=== PATIENT | female | born 1945 | race Caucasian/White ===

== ENCOUNTER 2018-06-10 20:52 | Inpatient (IN) | payer MEDICARE, OTHER ==
[2018-06-10 22:17] LABS: WHITE BLOOD COUNT 6.6 10^3/ul (4.8-10.8)
[2018-06-10 22:17] LABS: ABNORMAL IP MESSAGE 1; HEMATOCRIT 19.8 % (37.0-47.0); MEAN CORPUSCULAR HEMOGLOBIN 28.8 pg (29.0-33.0); MEAN CORPUSCULAR HGB CONC 31.8 g/dl (32.0-37.0); MEAN CORPUSCULAR VOLUME 90.4 fl (82.0-101.0); MEAN PLATELET VOLUME 12.4 fl (7.4-10.4); PLATELET COUNT 146 10^3/UL (140-415); RED BLOOD COUNT 2.19 10^6/ul (4.20-5.40); RED CELL DISTRIBUTION WIDTH 13.6 % (11.5-14.5)
[2018-06-10] MEDS: SOD CHLORIDE 0.9% 500 ML IV (22:19)
[2018-06-10 22:28] LABS: ADD UMIC YES; HEMOGLOBIN 6.3 g/dl (12.0-16.0); UR ASCORBIC ACID NEGATIVE (NEGATIVE); UR BACTERIA MANY /HPF (NONE SEEN); UR BILIRUBIN (Dip) NEGATIVE (NEGATIVE); UR BLOOD (Dip) NEGATIVE (NEGATIVE); UR CLARITY CLEAR (CLEAR); UR COLOR STRAW (YELLOW); UR GLUCOSE (Dip) 3+ mg/dL (NEGATIVE); UR KETONES (Dip) NEGATIVE (NEGATIVE); UR LEUKOCYTE ESTERASE (Dip) NEGATIVE Leu/ul (NEGATIVE); UR MUCUS FEW /HPF (NONE SEEN); UR NITRITE (Dip) NEGATIVE (NEGATIVE); UR RBC 1 /HPF (0-5); UR SPECIFIC GRAVITY (Dip) 1.016 (1.003-1.030); UR TOTAL PROTEIN (Dip) 1+ mg/dl (NEGATIVE); UR UROBILINOGEN (Dip) NEGATIVE (NEGATIVE); UR WBC 9 /HPF (0-5)
[2018-06-10 22:29] LABS: ADD MAN DIFF? YES; POSITIVE DIFF @See below
[2018-06-10 22:37] LABS: ALANINE AMINOTRANSFERASE 18 IU/L (13-69); ALBUMIN 1.9 g/dl (3.3-4.9); ALBUMIN/GLOBULIN RATIO 0.95; ALKALINE PHOSPHATASE 70 IU/L (42-121); ANION GAP 4 (5-13); ASPARTATE AMINO TRANSFERASE < 8 IU/L (15-46); BLOOD UREA NITROGEN 19 mg/dl (7-20); CARBON DIOXIDE 14 mmol/L (21-31); CHLORIDE 120 mmol/L (97-110); GLUCOSE 350 mg/dl (70-220); SODIUM 138 mmol/L (135-144); TOTAL PROTEIN 3.9 g/dl (6.1-8.1)
[2018-06-10 22:46] LABS: CALCIUM 5.2 mg/dl (8.4-10.2); POTASSIUM 2.5 mmol/L (3.5-5.1)
[2018-06-10 22:47] LABS: TROPONIN-I < 0.012 ng/ml (0.000-0.120)
[2018-06-10] MEDS ORDERED: SODIUM CHLORIDE 23.4% 77 MEQ, POTASSIUM CHLORIDE 30 MEQ in DEXTROSE 10% 1,000 ML IV (23:24)
[2018-06-10] MEDS ORDERED: POTASSIUM CHLORIDE 30 MEQ in SOD CHLORIDE 0.9% 1,000 ML IV (23:24)
[2018-06-10] MEDS ORDERED: SOD CHLORIDE 0.9% 1,000 ML IV (23:24)
[2018-06-10] MEDS ORDERED: POTASSIUM CHLORIDE 40 MEQ in SOD CHLORIDE 0.9% 1,000 ML IV (23:24)
[2018-06-10] MEDS ORDERED: SODIUM CHLORIDE 23.4% 77 MEQ, POTASSIUM CHLORIDE 40 MEQ in DEXTROSE 10% 1,000 ML IV (23:24)
[2018-06-10] MEDS ORDERED: SODIUM CHLORIDE 23.4% 77 MEQ in DEXTROSE 10% 1,000 ML IV (23:24)
[2018-06-10] MEDS ORDERED: DEXTROSE 50% 50 ML SYRINGE IV ×2 (23:30)
[2018-06-10] MEDS: SODIUM CHLORIDE 0.9% 1L BAG IV* (23:51)
[2018-06-11 00:05] LABS: MODE ROOM AIR; MetHgb Venous 0.4 %; Sample Type Blood venous; Site VENOUS LINE; Venous COHb 0.3 %; Venous Fraction OxyHgb 83.1 %; Venous Oxygen Sat 83.7 mmHG (55.0-75.0); Venous Total Hemglobin 11.7 g/dl
[2018-06-11] MEDS: CEFEPIME 2GM/50 ML (PMX) 50 ML IVPB (00:06)
[2018-06-11] MEDS ORDERED: SODIUM CHLORIDE 23.4% 77 MEQ, POTASSIUM CHLORIDE 40 MEQ in DEXTROSE 10% 1,000 ML IV (00:07)
[2018-06-11] MEDS ORDERED: SODIUM CHLORIDE 23.4% 77 MEQ in DEXTROSE 10% 1,000 ML IV (00:07)
[2018-06-11] MEDS ORDERED: SOD CHLORIDE 0.9% 1,000 ML IV (00:07)
[2018-06-11] MEDS ORDERED: POTASSIUM CHLORIDE 40 MEQ in SOD CHLORIDE 0.9% 1,000 ML IV (00:07)
[2018-06-11] MEDS ORDERED: SODIUM CHLORIDE 23.4% 77 MEQ, POTASSIUM CHLORIDE 30 MEQ in DEXTROSE 10% 1,000 ML IV (00:07)
[2018-06-11] MEDS ORDERED: POTASSIUM CHLORIDE 30 MEQ in SOD CHLORIDE 0.9% 1,000 ML IV (00:07)
[2018-06-11 00:11] LABS: HEMOGLOBIN A1C 8.6 % (0-5.9)
[2018-06-11] MEDS: POTASSIUM CHLORIDE 100 ML IVPB (00:16)
[2018-06-11] MEDS ORDERED: ACETAMINOPHEN 650 MG SUPP PR (00:30)
[2018-06-11] MEDS ORDERED: HEPARIN 5,000 UNIT/1 ML VIAL SC (00:30)
[2018-06-11] MEDS ORDERED: POTASSIUM CHLORIDE 50 ML IVPB (00:30)
[2018-06-11] MEDS: CALCIUM GLUCONATE 10% 1 GM in DEXTROSE 5% 100 ML IVPB (00:31)
[2018-06-11] MEDS: LACTATED RINGER'S 860 ML IV (00:40)
[2018-06-11 00:44] LABS: ANION GAP 13 (5-13); BLOOD UREA NITROGEN 29 mg/dl (7-20); CALCIUM 8.7 mg/dl (8.4-10.2); CARBON DIOXIDE 18 mmol/L (21-31); CHLORIDE 105 mmol/L (97-110); CREATININE 1.15 mg/dl (0.44-1.00); SODIUM 136 mmol/L (135-144)
[2018-06-11 00:50] LABS: GLUCOSE 524 mg/dl (70-220)
[2018-06-11 00:54] LABS: MAGNESIUM 1.2 mg/dl (1.7-2.5)
[2018-06-11 00:54] LABS: PHOSPHORUS 2.7 mg/dl (2.5-4.9)
[2018-06-11 01:34] LABS: VALPROATE 47 ug/ml (50-100)
[2018-06-11] MEDS: VANCOMYCIN 1 GM (PMX) 250 ML IVPB (01:35)
[2018-06-11 01:43] LABS: MODE ROOM AIR; MetHgb Venous 0.7 %; Sample Type Blood venous; Site VENOUS LINE; Venous COHb 0.3 %; Venous Fraction OxyHgb 45.2 %; Venous Oxygen Sat 45.7 mmHG (55.0-75.0)
[2018-06-11] MEDS: IPRATROPIUM (NEB) 0.5 MG/2.5 ML AMP NEB ×7 (02:27→20:41)
[2018-06-11] MEDS: ALBUTEROL 0.083% (NEB) 2.5 MG/3 ML AMP NEB ×6 (02:27→16:30)
[2018-06-11 02:44] LABS: IMMEDIATE SPIN CROSSMATCH 1 2
[2018-06-11 03:07] LABS: LACTIC ACID 1.5 mmol/L (0.5-2.0)
[2018-06-11] MEDS: INSULIN REGULAR, HUMAN 100 UNIT in SOD CHLORIDE 0.9% 100 ML IV (03:09)
[2018-06-11] MEDS: LORAZEPAM 2 MG INJ IV ×2 (03:11→11:25)
[2018-06-11 03:50] LABS: LACTIC ACID 1.5 mmol/L (0.5-2.0)
[2018-06-11 03:59] LABS: ANION GAP 9 (5-13); BLOOD UREA NITROGEN 24 mg/dl (7-20); CALCIUM 8.3 mg/dl (8.4-10.2); CARBON DIOXIDE 19 mmol/L (21-31); CHLORIDE 111 mmol/L (97-110); CREATININE 0.94 mg/dl (0.44-1.00); GLUCOSE 376 mg/dl (70-220); POTASSIUM 4.7 mmol/L (3.5-5.1); SODIUM 139 mmol/L (135-144)
[2018-06-11] MEDS: MAGNESIUM SULFATE 3 GM in DEXTROSE 5% 100 ML IVPB (04:18)
[2018-06-11 04:23] LABS: PHOSPHORUS 2.5 mg/dl (2.5-4.9)
[2018-06-11 04:23] LABS: MAGNESIUM 1.1 mg/dl (1.7-2.5)
[2018-06-11] MEDS ORDERED: DEXTROSE 50% 50 ML SYRINGE IV ×4 (05:00→11:30)
[2018-06-11 05:18] LABS: ADD MAN DIFF? NO; BASOPHILS % 0.3 % (0.0-2.0); EOSINOPHILS % 0.2 % (0.0-7.0); HEMOGLOBIN 10.9 g/dl (12.0-16.0); LYMPHOCYTES # 1.4 10^3/ul (0.8-2.9); LYMPHOCYTES % 10.7 % (15.0-51.0); MEAN CORPUSCULAR HEMOGLOBIN 28.5 pg (29.0-33.0); MEAN CORPUSCULAR HGB CONC 32.1 g/dl (32.0-37.0); MEAN CORPUSCULAR VOLUME 88.8 fl (82.0-101.0); MEAN PLATELET VOLUME 11.8 fl (7.4-10.4); MONOCYTE # 0.8 10^3/ul (0.3-0.9); MONOCYTES % 6.3 % (0.0-11.0); NEUTROPHIL # 10.4 10^3/ul (1.6-7.5); PLATELET COUNT 225 10^3/UL (140-415); RED BLOOD COUNT 3.83 10^6/ul (4.20-5.40); RED CELL DISTRIBUTION WIDTH 13.3 % (11.5-14.5)
[2018-06-11 05:18] LABS: WHITE BLOOD COUNT 12.7 10^3/ul (4.8-10.8)
[2018-06-11] MEDS: PANTOPRAZOLE 40 MG INJ IV (05:26)
[2018-06-11] MEDS: INSULIN HUMAN REGULAR 100 UNIT in SOD CHLORIDE 0.9% 99 ML IV (05:27)
[2018-06-11] MEDS: ACCU-CHEK XX ×8 (05:28→11:34)
[2018-06-11] MEDS: SOD CHLORIDE 0.9% 1,000 ML IV (05:28)
[2018-06-11 05:34] LABS: IRON 36 ug/dl (35-150)
[2018-06-11 05:44] LABS: % IRON SATURATION 15 % SAT (22-52); TOTAL IRON BINDING CAPACITY 233 ug/dl (241-421)
[2018-06-11] MEDS ORDERED: HEPARIN 5,000 UNIT/0.5 ML VIAL SC (06:00)
[2018-06-11 06:02] LABS: IONIZED CALCIUM 1.2 mmol/L (1.1-1.4)
[2018-06-11 06:03] LABS: ALBUMIN 3.4 g/dl (3.3-4.9)
[2018-06-11 06:06] LABS: ANION GAP 10 (5-13); BLOOD UREA NITROGEN 23 mg/dl (7-20); CALCIUM 8.7 mg/dl (8.4-10.2); CARBON DIOXIDE 17 mmol/L (21-31); CHLORIDE 112 mmol/L (97-110); GLUCOSE 317 mg/dl (70-220); POTASSIUM 4.4 mmol/L (3.5-5.1); SODIUM 139 mmol/L (135-144)
[2018-06-11 06:10] LABS: FERRITIN 58.5 ng/ml (11.1-264.0)
[2018-06-11 06:18] LABS: ANISOCYTOSIS 2+ (0-0); BAND NEUTROPHILS #M 0.3 10^3/ul (0.0-0.6); BAND NEUTROPHILS % (M) 6 % (0-4); EOSINOPHILS % (M) 1 % (0-7); LYMPHOCYTES #M 0.5 10^3/ul (0.8-2.9); LYMPHOCYTES % (M) 9 % (15-51); MICROCYTOSIS 2+ (0-0); MONOCYTE #M 0.1 10^3/ul (0.3-0.9); MONOCYTES % (M) 2 % (0-11); PLASMAC%(M) 1 % (0); PLATELET ESTIMATE NORMAL; POIKILOCYTOSIS 2+ (0-0); POLYCHROMASIA 1+ (0-0); SEG NEUT #M 5.4 10^3/ul (1.6-7.5); SEGMENTED NEUTROPHILS (M) % 81 % (39-77); SMUDGE%M 7 % (0-0)
[2018-06-11 08:25] LABS: ADD MAN DIFF? NO
[2018-06-11 08:32] LABS: WHITE BLOOD COUNT 12.8 10^3/ul (4.8-10.8)
[2018-06-11 08:32] LABS: BASOPHILS % 0.2 % (0.0-2.0); EOSINOPHILS % 0.2 % (0.0-7.0); HEMATOCRIT 35.8 % (37.0-47.0); HEMOGLOBIN 11.9 g/dl (12.0-16.0); LYMPHOCYTES # 1.7 10^3/ul (0.8-2.9); MEAN CORPUSCULAR HEMOGLOBIN 28.4 pg (29.0-33.0); MEAN CORPUSCULAR HGB CONC 33.2 g/dl (32.0-37.0); MEAN CORPUSCULAR VOLUME 85.4 fl (82.0-101.0); MEAN PLATELET VOLUME 11.7 fl (7.4-10.4); MONOCYTE # 0.8 10^3/ul (0.3-0.9); MONOCYTES % 6.2 % (0.0-11.0); NEUTROPHIL # 10.3 10^3/ul (1.6-7.5); NEUTROPHILS % 79.9 % (39.0-77.0); PLATELET COUNT 221 10^3/UL (140-415); RED BLOOD COUNT 4.19 10^6/ul (4.20-5.40); RED CELL DISTRIBUTION WIDTH 13.6 % (11.5-14.5)
[2018-06-11] MEDS: ARIPIPRAZOLE 5 MG TAB PO (08:55)
[2018-06-11] MEDS: QUETIAPINE 100 MG TAB PO (08:55)
[2018-06-11] MEDS: HALOPERIDOL 5 MG TAB PO ×2 (08:55→21:00)
[2018-06-11 08:56] LABS: ANION GAP 8 (5-13); BLOOD UREA NITROGEN 20 mg/dl (7-20); CALCIUM 9.2 mg/dl (8.4-10.2); CARBON DIOXIDE 20 mmol/L (21-31); CHLORIDE 112 mmol/L (97-110); CREATININE 0.86 mg/dl (0.44-1.00); GLUCOSE 232 mg/dl (70-220); POTASSIUM 4.3 mmol/L (3.5-5.1); SODIUM 140 mmol/L (135-144)
[2018-06-11] MEDS: hydrALAzine 20 MG INJ IV (08:56)
[2018-06-11] MEDS: HEPARIN 5,000 UNIT/1 ML VIAL SC ×4 (09:00→22:00)
[2018-06-11 09:03] LABS: LACTIC ACID 1.6 mmol/L (0.5-2.0)
[2018-06-11] MEDS ORDERED: HALOPERIDOL 5 MG INJ IV (10:00)
[2018-06-11] MEDS: VALPROIC ACID 250 MG CAP PO (10:00)
[2018-06-11] MEDS: BENZTROPINE 1 MG TAB PO ×2 (10:01→21:00)
[2018-06-11] MEDS ORDERED: HEPARIN 5,000 UNIT/0.5 ML VIAL ×3 (10:01→22:14)
[2018-06-11] MEDS: AMLODIPINE 10 MG TAB PO (10:04)
[2018-06-11] MEDS: LABETALOL 200 MG TAB PO ×2 (10:04→21:00)
[2018-06-11] MEDS: INSULIN ASPART [NOVOLOG] 3 ML PEN SC ×3 (10:32→21:00)
[2018-06-11] MEDS: INSULIN GLARGINE [LANTus] (100 UNITS/ML) SYG SC (11:28)
[2018-06-11] MEDS ORDERED: GLUCAGON 1 MG INJ IM (11:30)
[2018-06-11] MEDS ORDERED: GLUCOSE GEL 15 GRAM TUBE BUCCAL (11:30)
[2018-06-11] MEDS ORDERED: GLUCOSE GEL 15 GRAM TUBE PO ×2 (11:30)
[2018-06-11] MEDS ORDERED: ALPRAZOLAM 0.5 MG TAB PO (19:00)
[2018-06-11] MEDS ORDERED: LORAZEPAM 1 MG TAB PO (19:00)
[2018-06-12] MEDS: ALBUTEROL 0.083% (NEB) 2.5 MG/3 ML AMP NEB ×6 (01:00→20:47)
[2018-06-12] MEDS: IPRATROPIUM (NEB) 0.5 MG/2.5 ML AMP NEB ×6 (01:00→20:46)
[2018-06-12] MEDS ORDERED: VANCOMYCIN IV PER PHARMACY XX (02:00)
[2018-06-12] MEDS: SOD CHLORIDE 0.9% 1,000 ML IV ×2 (02:46→13:48)
[2018-06-12] MEDS: VANCOMYCIN 750 MG in SOD CHLORIDE 0.9% 150 ML IVPB (04:52)
[2018-06-12] MEDS: PANTOPRAZOLE 40 MG INJ IV (05:41)
[2018-06-12] MEDS: HEPARIN 5,000 UNIT/1 ML VIAL SC ×3 (05:41→22:00)
[2018-06-12 08:21] LABS: ADD MAN DIFF? NO
[2018-06-12 08:26] LABS: BASOPHILS % 0.5 % (0.0-2.0); EOSINOPHILS # 0.1 10^3/ul (0.0-0.5); EOSINOPHILS % 1.4 % (0.0-7.0); HEMATOCRIT 32.5 % (37.0-47.0); HEMOGLOBIN 10.8 g/dl (12.0-16.0); LYMPHOCYTES # 2.1 10^3/ul (0.8-2.9); LYMPHOCYTES % 24.8 % (15.0-51.0); MEAN CORPUSCULAR HEMOGLOBIN 28.8 pg (29.0-33.0); MEAN CORPUSCULAR HGB CONC 33.2 g/dl (32.0-37.0); MEAN CORPUSCULAR VOLUME 86.7 fl (82.0-101.0); MONOCYTE # 0.7 10^3/ul (0.3-0.9); MONOCYTES % 7.9 % (0.0-11.0); NEUTROPHIL # 5.5 10^3/ul (1.6-7.5); NEUTROPHILS % 64.9 % (39.0-77.0); PLATELET COUNT 220 10^3/UL (140-415); RED BLOOD COUNT 3.75 10^6/ul (4.20-5.40); RED CELL DISTRIBUTION WIDTH 14.1 % (11.5-14.5)
[2018-06-12 08:26] LABS: WHITE BLOOD COUNT 8.5 10^3/ul (4.8-10.8)
[2018-06-12] MEDS: HALOPERIDOL 5 MG TAB PO (08:40)
[2018-06-12] MEDS: AMLODIPINE 10 MG TAB PO (08:40)
[2018-06-12] MEDS: VALPROIC ACID 250 MG CAP PO ×2 (08:40→21:00)
[2018-06-12] MEDS: BENZTROPINE 1 MG TAB PO ×2 (08:40→21:00)
[2018-06-12] MEDS: INSULIN ASPART [NOVOLOG] 3 ML PEN SC ×4 (08:44→21:00)
[2018-06-12] MEDS: INSULIN GLARGINE [LANTus] (100 UNITS/ML) SYG SC (08:44)
[2018-06-12 08:45] LABS: ALBUMIN 3.4 g/dl (3.3-4.9); ANION GAP 10 (5-13); BLOOD UREA NITROGEN 18 mg/dl (7-20); CALCIUM 8.8 mg/dl (8.4-10.2); CARBON DIOXIDE 20 mmol/L (21-31); CHLORIDE 108 mmol/L (97-110); CREATININE 1.09 mg/dl (0.44-1.00); GLUCOSE 222 mg/dl (70-220); MAGNESIUM 1.6 mg/dl (1.7-2.5); PHOSPHORUS 3.1 mg/dl (2.5-4.9); POTASSIUM 3.9 mmol/L (3.5-5.1); SODIUM 138 mmol/L (135-144)
[2018-06-12] MEDS: LABETALOL 200 MG TAB PO ×2 (10:15→21:00)
[2018-06-12] MEDS: ARIPIPRAZOLE 5 MG TAB PO (10:15)
[2018-06-12] MEDS: QUETIAPINE 100 MG TAB PO ×2 (10:16→21:00)
[2018-06-12] MEDS ORDERED: HEPARIN 5,000 UNIT/0.5 ML VIAL ×2 (14:41→21:00)
[2018-06-12] MEDS: MAGNESIUM SULFATE 2 GM/50 ML 50 ML IVPB (14:51)
[2018-06-12] MEDS: LORAZEPAM 2 MG INJ IV (14:56)
[2018-06-12] MEDS: CEFEPIME 1GM/50 ML (PMX) 50 ML IVPB (21:00)
[2018-06-13] MEDS: ALBUTEROL 0.083% (NEB) 2.5 MG/3 ML AMP NEB ×6 (01:00→20:34)
[2018-06-13] MEDS: IPRATROPIUM (NEB) 0.5 MG/2.5 ML AMP NEB ×6 (01:00→20:34)
[2018-06-13] MEDS: VANCOMYCIN 1.25 GM in SOD CHLORIDE 0.9% 250 ML IVPB (01:30)
[2018-06-13] MEDS: PANTOPRAZOLE 40 MG INJ IV (05:30)
[2018-06-13] MEDS: HEPARIN 5,000 UNIT/1 ML VIAL SC ×3 (05:31→21:40)
[2018-06-13] MEDS ORDERED: HEPARIN 5,000 UNIT/0.5 ML VIAL ×3 (08:43→21:35)
[2018-06-13] MEDS: BENZTROPINE 1 MG TAB PO ×2 (08:56→20:38)
[2018-06-13] MEDS: QUETIAPINE 100 MG TAB PO ×2 (08:56→20:39)
[2018-06-13] MEDS: LABETALOL 200 MG TAB PO ×2 (08:56→20:40)
[2018-06-13] MEDS: AMLODIPINE 10 MG TAB PO (08:57)
[2018-06-13] MEDS ORDERED: ARIPIPRAZOLE 10 MG TAB PO (09:00)
[2018-06-13] MEDS: INSULIN GLARGINE [LANTus] (100 UNITS/ML) SYG SC (09:01)
[2018-06-13] MEDS: INSULIN ASPART [NOVOLOG] 3 ML PEN SC ×4 (09:02→21:00)
[2018-06-13] MEDS: VALPROIC ACID 250 MG CAP PO ×2 (09:12→20:39)
[2018-06-13] MEDS: CEFEPIME 1GM/50 ML (PMX) 50 ML IVPB ×2 (09:16)
[2018-06-13] MEDS: SOD CHLORIDE 0.9% 1,000 ML IV ×3 (09:25→14:51)
[2018-06-13 14:32] LABS: ADD MAN DIFF? NO
[2018-06-13 14:37] LABS: WHITE BLOOD COUNT 8.7 10^3/ul (4.8-10.8)
[2018-06-13 14:37] LABS: BASOPHILS % 0.5 % (0.0-2.0); EOSINOPHILS # 0.2 10^3/ul (0.0-0.5); EOSINOPHILS % 2.5 % (0.0-7.0); HEMATOCRIT 31.8 % (37.0-47.0); HEMOGLOBIN 10.5 g/dl (12.0-16.0); LYMPHOCYTES # 2.3 10^3/ul (0.8-2.9); LYMPHOCYTES % 25.9 % (15.0-51.0); MEAN CORPUSCULAR HEMOGLOBIN 28.3 pg (29.0-33.0); MEAN CORPUSCULAR VOLUME 85.7 fl (82.0-101.0); MEAN PLATELET VOLUME 12.3 fl (7.4-10.4); MONOCYTE # 0.7 10^3/ul (0.3-0.9); MONOCYTES % 8.5 % (0.0-11.0); NEUTROPHIL # 5.4 10^3/ul (1.6-7.5); NEUTROPHILS % 61.9 % (39.0-77.0); PLATELET COUNT 204 10^3/UL (140-415); RED BLOOD COUNT 3.71 10^6/ul (4.20-5.40); RED CELL DISTRIBUTION WIDTH 13.6 % (11.5-14.5)
[2018-06-13 15:04] LABS: ALBUMIN 3.3 g/dl (3.3-4.9); ANION GAP 10 (5-13); BLOOD UREA NITROGEN 18 mg/dl (7-20); CALCIUM 8.6 mg/dl (8.4-10.2); CARBON DIOXIDE 19 mmol/L (21-31); CHLORIDE 107 mmol/L (97-110); CREATININE 0.87 mg/dl (0.44-1.00); GLUCOSE 219 mg/dl (70-220); MAGNESIUM 1.6 mg/dl (1.7-2.5); PHOSPHORUS 3.3 mg/dl (2.5-4.9); POTASSIUM 4.3 mmol/L (3.5-5.1); SODIUM 136 mmol/L (135-144)
[2018-06-13 17:22] LABS: HEPATITIS C VIRAL ANTIBODY NEGATIVE (NEGATIVE)
[2018-06-13] MEDS: metFORMIN 500 MG TAB PO (17:28)
[2018-06-13] MEDS: REPAGLINIDE 1 MG TAB PO (17:28)
[2018-06-13] MEDS: CEPHALEXIN 500 MG CAP PO ×2 (17:34→21:39)
[2018-06-13] MEDS: MAGNESIUM SULFATE 2 GM/50 ML 50 ML IVPB (17:36)
[2018-06-13 22:14] LABS: RAPID PLASMA REAGIN NONREACTIVE (NR)
[2018-06-14] MEDS: IPRATROPIUM (NEB) 0.5 MG/2.5 ML AMP NEB ×6 (00:46→20:41)
[2018-06-14] MEDS: ALBUTEROL 0.083% (NEB) 2.5 MG/3 ML AMP NEB ×6 (00:46→20:41)
[2018-06-14] MEDS: VANCOMYCIN 1.25 GM in SOD CHLORIDE 0.9% 250 ML IVPB (02:18)
[2018-06-14] MEDS ORDERED: HEPARIN 5,000 UNIT/0.5 ML VIAL ×3 (05:30→22:06)
[2018-06-14] MEDS: HEPARIN 5,000 UNIT/1 ML VIAL SC ×4 (06:00→22:00)
[2018-06-14] MEDS: CEPHALEXIN 500 MG CAP PO ×2 (06:12→13:00)
[2018-06-14 08:27] LABS: ADD MAN DIFF? NO
[2018-06-14 08:29] LABS: WHITE BLOOD COUNT 7.3 10^3/ul (4.8-10.8)
[2018-06-14 08:29] LABS: BASOPHILS % 0.4 % (0.0-2.0); EOSINOPHILS # 0.2 10^3/ul (0.0-0.5); EOSINOPHILS % 2.8 % (0.0-7.0); HEMATOCRIT 29.7 % (37.0-47.0); HEMOGLOBIN 9.7 g/dl (12.0-16.0); LYMPHOCYTES # 2.4 10^3/ul (0.8-2.9); LYMPHOCYTES % 32.9 % (15.0-51.0); MEAN CORPUSCULAR HEMOGLOBIN 28.2 pg (29.0-33.0); MEAN CORPUSCULAR HGB CONC 32.7 g/dl (32.0-37.0); MEAN CORPUSCULAR VOLUME 86.3 fl (82.0-101.0); MEAN PLATELET VOLUME 12.1 fl (7.4-10.4); MONOCYTE # 0.7 10^3/ul (0.3-0.9); MONOCYTES % 9.8 % (0.0-11.0); NEUTROPHIL # 3.9 10^3/ul (1.6-7.5); NEUTROPHILS % 53.7 % (39.0-77.0); PLATELET COUNT 210 10^3/UL (140-415); RED BLOOD COUNT 3.44 10^6/ul (4.20-5.40); RED CELL DISTRIBUTION WIDTH 13.5 % (11.5-14.5)
[2018-06-14 08:58] LABS: ALBUMIN 3.1 g/dl (3.3-4.9); ANION GAP 10 (5-13); BLOOD UREA NITROGEN 19 mg/dl (7-20); CALCIUM 8.8 mg/dl (8.4-10.2); CARBON DIOXIDE 19 mmol/L (21-31); CHLORIDE 109 mmol/L (97-110); CREATININE 0.84 mg/dl (0.44-1.00); GLUCOSE 112 mg/dl (70-220); MAGNESIUM 1.8 mg/dl (1.7-2.5); PHOSPHORUS 3.9 mg/dl (2.5-4.9); POTASSIUM 3.7 mmol/L (3.5-5.1); SODIUM 138 mmol/L (135-144)
[2018-06-14] MEDS: REPAGLINIDE 1 MG TAB PO ×3 (09:11→17:20)
[2018-06-14] MEDS: VALPROIC ACID 250 MG CAP PO ×2 (09:11→20:31)
[2018-06-14] MEDS: QUETIAPINE 100 MG TAB PO ×2 (09:12→20:30)
[2018-06-14] MEDS: AMLODIPINE 10 MG TAB PO (09:13)
[2018-06-14] MEDS: LABETALOL 200 MG TAB PO ×2 (09:13→20:31)
[2018-06-14] MEDS: INSULIN ASPART [NOVOLOG] 3 ML PEN SC ×4 (09:15→20:49)
[2018-06-14] MEDS: INSULIN GLARGINE [LANTus] (100 UNITS/ML) SYG SC (09:17)
[2018-06-14] MEDS: BENZTROPINE 1 MG TAB PO ×2 (09:34→20:31)
[2018-06-14] MEDS: metFORMIN 500 MG TAB PO (17:21)
[2018-06-14] MEDS: CEFTRIAXONE 1 GM/50 ML (PMX) 50 ML IVPB (17:35)
[2018-06-14] MEDS: ONDANSETRON 4 MG INJ IV ×2 (17:56→20:32)
[2018-06-14] MEDS: hydrALAzine 20 MG INJ IV (20:32)
[2018-06-15] MEDS: ALBUTEROL 0.083% (NEB) 2.5 MG/3 ML AMP NEB ×6 (00:40→20:12)
[2018-06-15] MEDS: IPRATROPIUM (NEB) 0.5 MG/2.5 ML AMP NEB ×6 (00:40→20:12)
[2018-06-15] MEDS ORDERED: HEPARIN 5,000 UNIT/0.5 ML VIAL ×2 (05:23→20:00)
[2018-06-15] MEDS: PANTOPRAZOLE 40 MG INJ IV (05:42)
[2018-06-15] MEDS: HEPARIN 5,000 UNIT/1 ML VIAL SC ×3 (05:43→21:04)
[2018-06-15] MEDS: QUETIAPINE 100 MG TAB PO ×2 (07:57→21:03)
[2018-06-15] MEDS: LABETALOL 200 MG TAB PO ×2 (07:58→21:05)
[2018-06-15] MEDS: REPAGLINIDE 1 MG TAB PO ×3 (07:58→17:02)
[2018-06-15] MEDS: AMLODIPINE 10 MG TAB PO (07:59)
[2018-06-15] MEDS: VALPROIC ACID 250 MG CAP PO ×2 (07:59→21:09)
[2018-06-15] MEDS: BENZTROPINE 1 MG TAB PO ×2 (07:59→21:05)
[2018-06-15] MEDS: INSULIN GLARGINE [LANTus] (100 UNITS/ML) SYG SC (08:00)
[2018-06-15] MEDS: INSULIN ASPART [NOVOLOG] 3 ML PEN SC ×6 (08:00→20:29)
[2018-06-15] MEDS: CEFTRIAXONE 1 GM/50 ML (PMX) 50 ML IVPB (14:06)
[2018-06-15 14:27] LABS: C-PEPTIDE 1.42 ng/mL (0.80-3.85)
[2018-06-15] MEDS: metFORMIN 500 MG TAB PO (17:03)
[2018-06-16] MEDS: ALBUTEROL 0.083% (NEB) 2.5 MG/3 ML AMP NEB ×6 (00:58→21:00)
[2018-06-16] MEDS: IPRATROPIUM (NEB) 0.5 MG/2.5 ML AMP NEB ×6 (00:58→21:00)
[2018-06-16] MEDS: HEPARIN 5,000 UNIT/1 ML VIAL SC ×3 (06:00→21:40)
[2018-06-16] MEDS: PANTOPRAZOLE 40 MG INJ IV (06:25)
[2018-06-16] MEDS ORDERED: INSULIN GLARGINE [LANTus] (100 UNITS/ML) SYG SC (08:00)
[2018-06-16] MEDS: INSULIN GLARGINE [LANTus] (100 UNITS/ML) SYG SC ×2 (08:00→12:18)
[2018-06-16] MEDS: BENZTROPINE 1 MG TAB PO ×2 (08:05→21:37)
[2018-06-16] MEDS: QUETIAPINE 100 MG TAB PO ×2 (08:05→21:37)
[2018-06-16] MEDS: VALPROIC ACID 250 MG CAP PO ×2 (08:05→22:54)
[2018-06-16] MEDS: LABETALOL 200 MG TAB PO ×2 (08:05→21:38)
[2018-06-16] MEDS: AMLODIPINE 10 MG TAB PO (08:06)
[2018-06-16] MEDS: INSULIN ASPART [NOVOLOG] 3 ML PEN SC ×7 (08:07→21:00)
[2018-06-16] MEDS ORDERED: HEPARIN 5,000 UNIT/0.5 ML VIAL ×2 (13:54→21:13)
[2018-06-16] MEDS: CEFTRIAXONE 1 GM/50 ML (PMX) 50 ML IVPB (15:00)
[2018-06-17] MEDS: ALBUTEROL 0.083% (NEB) 2.5 MG/3 ML AMP NEB ×6 (00:55→20:43)
[2018-06-17] MEDS: IPRATROPIUM (NEB) 0.5 MG/2.5 ML AMP NEB ×6 (00:55→20:43)
[2018-06-17] MEDS ORDERED: HEPARIN 5,000 UNIT/0.5 ML VIAL ×2 (04:46→20:23)
[2018-06-17] MEDS: PANTOPRAZOLE 40 MG INJ IV (05:33)
[2018-06-17] MEDS: HEPARIN 5,000 UNIT/1 ML VIAL SC ×4 (05:33→22:00)
[2018-06-17] MEDS: INSULIN GLARGINE [LANTus] (100 UNITS/ML) SYG SC (08:00)
[2018-06-17] MEDS: INSULIN ASPART [NOVOLOG] 3 ML PEN SC ×7 (08:00→21:00)
[2018-06-17] MEDS: VALPROIC ACID 250 MG CAP PO ×3 (08:01→21:57)
[2018-06-17] MEDS: QUETIAPINE 100 MG TAB PO ×3 (08:02→21:57)
[2018-06-17] MEDS: AMLODIPINE 10 MG TAB PO (08:02)
[2018-06-17] MEDS: BENZTROPINE 1 MG TAB PO ×3 (08:02→21:55)
[2018-06-17] MEDS: LABETALOL 200 MG TAB PO ×3 (08:02→21:57)
[2018-06-17] MEDS: AL HYDROX/MG HYDROX/SIMETH 30 ML CUP PO (14:15)
[2018-06-17] MEDS: CEFTRIAXONE 1 GM/50 ML (PMX) 50 ML IVPB (15:11)
[2018-06-18] MEDS: ALBUTEROL 0.083% (NEB) 2.5 MG/3 ML AMP NEB ×5 (01:00→15:56)
[2018-06-18] MEDS: IPRATROPIUM (NEB) 0.5 MG/2.5 ML AMP NEB ×5 (01:00→15:56)
[2018-06-18] MEDS: PANTOPRAZOLE 40 MG INJ IV (05:49)
[2018-06-18] MEDS: HEPARIN 5,000 UNIT/1 ML VIAL SC ×2 (05:49→14:00)
[2018-06-18] MEDS: QUETIAPINE 100 MG TAB PO (08:35)
[2018-06-18] MEDS: INSULIN ASPART [NOVOLOG] 3 ML PEN SC ×6 (08:36→18:00)
[2018-06-18] MEDS: INSULIN GLARGINE [LANTus] (100 UNITS/ML) SYG SC (08:38)
[2018-06-18] MEDS: AMLODIPINE 10 MG TAB PO (08:42)
[2018-06-18] MEDS: BENZTROPINE 1 MG TAB PO (08:42)
[2018-06-18] MEDS: LABETALOL 200 MG TAB PO (08:42)
[2018-06-18] MEDS: VALPROIC ACID 250 MG CAP PO (08:42)
[2018-06-18] MEDS ORDERED: CEPHALEXIN 500 MG CAP PO (14:00)
== END 2018-06-18 18:00 | disposition home or self-care (01) | DRG 871 ==
LOC: E/R 20:52 → ICU 23:46 → 5EC 06-11 18:30
PROVIDERS: Family Medicine
PROC: 30233N1 Transfusion of Nonautologous Red Blood Cells into Peripheral Vein, Percutaneous Approach (ICD-10-PCS; principal; 2018-06-11)
DX: A41.9 Sepsis, unspecified organism (principal); E11.10 Type 2 diabetes mellitus with ketoacidosis without coma; G93.41 Metabolic encephalopathy; E87.2 Acidosis; N39.0 Urinary tract infection, site not specified; N17.9 Acute kidney failure, unspecified; R65.20 Severe sepsis without septic shock; D64.9 Anemia, unspecified; E78.5 Hyperlipidemia, unspecified; E88.09 Other disorders of plasma-protein metabolism, not elsewhere classified; E87.6 Hypokalemia; E66.9 Obesity, unspecified; F03.90 Unspecified dementia, unspecified severity, without behavioral disturbance, psychotic disturbance, mood disturbance, and anxiety; F20.9 Schizophrenia, unspecified; I10 Essential (primary) hypertension; B96.20 Unspecified Escherichia coli [E. coli] as the cause of diseases classified elsewhere; R53.81 Other malaise; R62.7 Adult failure to thrive; Z68.34 Body mass index [BMI] 34.0-34.9, adult; Z91.14 Patient's other noncompliance with medication regimen
CPT/HCPCS: 36415; 36430; 70450; 71045; 80048; 80053; 80069; 80164; 81001; 82040; 82330; 82728; 82803; 82962; 83036; 83540; 83605; 83735; 84100; 84443; 84484; 84681; 85025; 86592; 86803; 86850; 86900; 86901; 86920; 87040; 87081; 87086; 93005; 93306; 94664; 97110; 97163; 97166; 97535; 99291-25